=== PATIENT | female | born 1955 | race African-American/Black ===

== ENCOUNTER 2017-09-18 15:45 | Inpatient (IN) | payer MEDICAID, OTHER ==
[~2017-09-18] VITALS: Ht 167.6 cm; Wt 136.5 kg
[~2017-09-18 15:45] MED LIST: AMIT50TA3; DM H; LISI-604; OMEP40CA34; OXYB5TAB11
[2017-09-18] MEDS ORDERED: ACETAMINOPHEN 325MG TABLET PO STA (18:25)
[2017-09-18] MEDS ORDERED: SODIUM CHLORIDE 0.9% 1000ML BAG (SEPSIS BOLUS) IV ONE (18:45)
[2017-09-18] MEDS ORDERED: PIPERACILLIN/TAZOBACTAM 3.375GM/50ML PREMIX IV ONE (19:15)
[2017-09-18] MEDS ORDERED: METRONIDAZOLE 500 MG PREMIX 100 ML IV ONE (19:15)
[2017-09-18] MEDS ORDERED: VANCOMYCIN 1 G PREMIX 200 ML IV SCH (19:15)
[2017-09-18 19:31] LABS: CLARITY URINE CLEAR (CLEAR); COLOR URINE YELLOW (YELLOW); GLUCOSE URINE NEGATIVE (NEGATIVE); KETONES URINE NEGATIVE (NEGATIVE); LEUKOCYTE ESTERASE URINE NEGATIVE (NEGATIVE); NITRITE URINE NEGATIVE (NEGATIVE); OCCULT BLOOD URINE NEGATIVE (NEGATIVE); PROTEIN URINE 2+ (NEGATIVE); SPECIFIC GRAVITY URINE 1.015 (1.005-1.030); UROBILINOGEN URINE 0.2 E.U./dL (0.2-1.0)
[2017-09-18 19:39] LABS: CHLORIDE 110 mEq/L (98-107)
[2017-09-18 19:45] LABS: BASOPHILS % 0.6 % (0.0-2.0); EOSINOPHILS % 13.5 % (0.0-5.0); HEMATOCRIT. 37.3 % (36.0-48.0); HEMOGLOBIN. 11.9 g/dL (12.0-16.0); LYMPHOCYTES % 21.9 % (20.0-50.0); MEAN CORPUSCULAR HEMOGLOBIN 25.6 pg (28.0-32.0); MEAN CORPUSCULAR VOLUME 80.2 fL (81.0-99.0); MEAN PLATELET VOLUME 8.4 fl (7.4-10.4); MONOCYTES % 10.2 % (2.0-8.0); NEUTROPHILS % 53.8 % (40.0-76.0); PLATELET 231 x1000/uL (130-400); RED BLOOD CELL COUNT 4.65 mill/uL (4.2-5.4); RED CELL DISTRIBUTION WIDTH 15.9 % (11.6-14.6)
[2017-09-18 19:56] LABS: CARBON DIOXIDE 25 mEq/L (21-32)
[2017-09-18] MEDS ORDERED: PIPERACILLIN/TAZ 3.375G PREMIX 50 ML IV NR (20:45)
[2017-09-18] MEDS ORDERED: CLONIDINE 0.1MG TABLET PO PRN (23:15)
[2017-09-18] MEDS ORDERED: DOCUSATE SODIUM 100MG CAPSULE PO PRN (23:15)
[2017-09-18] MEDS ORDERED: IPRATROPIUM/ALBUTEROL 0.5-3(2.5)MG/3ML NEB INH PRN (23:15)
[2017-09-18] MEDS ORDERED: MAGNESIUM/ALUMINUM HYDROXIDE/SIMETHICONE 30ML UDC PO PRN (23:15)
[2017-09-18] MEDS ORDERED: ONDANSETRON HCL 4MG/2ML VIAL IV PRN (23:15)
[2017-09-19] VITALS (7 sets, daily range): BP systolic 116–145; BP diastolic 65–81
[2017-09-19] MEDS ORDERED: VANCOMYCIN 1250MG in DEXTROSE 5% WATER 250ML IV NR (04:00)
[2017-09-19] MEDS: SODIUM CHLORIDE 0.9% 1,000 ML IV SCH ×2 (04:26→12:37)
[2017-09-19] MEDS ORDERED: METR500T4 PO (04:33)
[2017-09-19] MEDS ORDERED: SULF-288 PO (04:33)
[2017-09-19] MEDS ORDERED: ALLO100T PO (04:33)
[2017-09-19] MEDS ORDERED: DIPH25CA46 PO (04:33)
[2017-09-19] MEDS ORDERED: GABA-290 PO (04:33)
[2017-09-19] MEDS ORDERED: AMLO10TA80 PO (04:33)
[2017-09-19] MEDS ORDERED: DIPHENHYDRAMINE 25MG CAPSULE PO PRN (06:30)
[2017-09-19] MEDS: PIPERACILLIN/TAZ 3.375G PREMIX 50 ML IV SCH ×3 (06:37→21:40)
[2017-09-19] MEDS: GABAPENTIN 300MG CAPSULE PO SCH ×3 (07:00→21:41)
[2017-09-19] MEDS: METRONIDAZOLE 500MG TABLET PO SCH ×3 (07:00→21:41)
[2017-09-19] MEDS: OMEPRAZOLE 20MG CAPSULE EXTENDED RELEASE PO SCH (07:01)
[2017-09-19 07:12] LABS: BASOPHILS % 0.6 % (0.0-2.0); EOSINOPHILS % 14.7 % (0.0-5.0); HEMATOCRIT. 34.7 % (36.0-48.0); HEMOGLOBIN. 11.1 g/dL (12.0-16.0); LYMPHOCYTES % 20.3 % (20.0-50.0); MEAN CORPUSCULAR HEMOGLOBIN 25.8 pg (28.0-32.0); MEAN CORPUSCULAR VOLUME 80.8 fL (81.0-99.0); MEAN PLATELET VOLUME 8.5 fl (7.4-10.4); MONOCYTES % 10.4 % (2.0-8.0); PLATELET 187 x1000/uL (130-400); RED CELL DISTRIBUTION WIDTH 15.9 % (11.6-14.6)
[2017-09-19] MEDS: ALLOPURINOL 100 MG TABLET PO SCH (09:00)
[2017-09-19] MEDS: OXYBUTYNIN CHLORIDE 5MG TABLET PO SCH ×2 (09:00→20:22)
[2017-09-19] MEDS ORDERED: LISINOPRIL 20MG TABLET PO SCH (09:00)
[2017-09-19] MEDS: AMLODIPINE 10MG TABLET PO SCH (09:00)
[2017-09-19] MEDS: ACETAMINOPHEN 325MG TABLET PO PRN ×2 (09:29→20:30)
[2017-09-19] MEDS: ENOXAPARIN 40MG/0.4ML SYR SUBCUT SCH ×2 (09:32→20:23)
[2017-09-19] MEDS ORDERED: SODIUM POLYSTYRENE SULFONATE 15 G/60 ML BOT PO NR (14:45)
[2017-09-20] VITALS: BP 134/59
[2017-09-20] MEDS: PIPERACILLIN/TAZ 3.375G PREMIX 50 ML IV SCH ×4 (01:37→20:46)
[2017-09-20] MEDS: SODIUM CHLORIDE 0.9% 1,000 ML IV SCH ×2 (01:38→13:40)
[2017-09-20 04:00] VITALS: BP 127/71
[2017-09-20] MEDS: METRONIDAZOLE 500MG TABLET PO SCH ×3 (05:40→21:01)
[2017-09-20] MEDS: GABAPENTIN 300MG CAPSULE PO SCH ×3 (05:40→21:01)
[2017-09-20] MEDS ORDERED: VANCOMYCIN 1 G PREMIX 200 ML IV SCH (06:00)
[2017-09-20 06:44] LABS: EOSINOPHILS % 15.2 % (0.0-5.0); HEMATOCRIT. 33.9 % (36.0-48.0); HEMOGLOBIN. 10.8 g/dL (12.0-16.0); LYMPHOCYTES % 26.8 % (20.0-50.0); MEAN CORPUSCULAR HEMOGLOBIN 25.5 pg (28.0-32.0); MEAN CORPUSCULAR VOLUME 80.1 fL (81.0-99.0); MEAN PLATELET VOLUME 8.4 fl (7.4-10.4); MONOCYTES % 11.2 % (2.0-8.0); NEUTROPHILS % 45.8 % (40.0-76.0); PLATELET 184 x1000/uL (130-400); RED BLOOD CELL COUNT 4.23 mill/uL (4.2-5.4); RED CELL DISTRIBUTION WIDTH 15.6 % (11.6-14.6)
[2017-09-20] MEDS: OMEPRAZOLE 20MG CAPSULE EXTENDED RELEASE PO SCH (07:28)
[2017-09-20 08:00] VITALS: BP 130/76
[2017-09-20] MEDS: OXYBUTYNIN CHLORIDE 5MG TABLET PO SCH ×2 (08:32→20:47)
[2017-09-20] MEDS: ENOXAPARIN 40MG/0.4ML SYR SUBCUT SCH ×2 (08:32→20:48)
[2017-09-20] MEDS: AMLODIPINE 10MG TABLET PO SCH (08:32)
[2017-09-20] MEDS: ALLOPURINOL 100 MG TABLET PO SCH (08:32)
[2017-09-20 12:00] VITALS: BP 123/62
[2017-09-20 12:14] LABS: TOTAL IRON BINDING CAPACITY 254 ug/dL (250-450)
[2017-09-20 16:00] VITALS: BP 146/81
[2017-09-20] MEDS: HYDROCODONE/ACETAMINOPHEN 5/325MG TABLET PO PRN ×2 (16:45→20:48)
[2017-09-20 20:00] VITALS: BP 102/51
[2017-09-20] MEDS ORDERED: ATORVASTATIN CALCIUM 10MG TABLET PO SCH (21:00)
[2017-09-21] VITALS: BP 137/60
[2017-09-21 04:00] VITALS: BP 116/58
[2017-09-21] MEDS: PIPERACILLIN/TAZ 3.375G PREMIX 50 ML IV SCH ×3 (04:53→16:03)
[2017-09-21] MEDS: SODIUM CHLORIDE 0.9% 1,000 ML IV SCH (04:55)
[2017-09-21 05:19] LABS: BASOPHILS % 1.1 % (0.0-2.0); EOSINOPHILS % 13.2 % (0.0-5.0); HEMATOCRIT. 33.3 % (36.0-48.0); HEMOGLOBIN. 10.6 g/dL (12.0-16.0); LYMPHOCYTES % 25.8 % (20.0-50.0); MEAN CORPUSCULAR HEMOGLOBIN 25.5 pg (28.0-32.0); MEAN CORPUSCULAR VOLUME 80.4 fL (81.0-99.0); MEAN PLATELET VOLUME 8.4 fl (7.4-10.4); MONOCYTES % 11.3 % (2.0-8.0); NEUTROPHILS % 48.6 % (40.0-76.0); PLATELET 180 x1000/uL (130-400); RED BLOOD CELL COUNT 4.14 mill/uL (4.2-5.4); RED CELL DISTRIBUTION WIDTH 15.4 % (11.6-14.6)
[2017-09-21 05:43] LABS: VANCOMYCIN TROUGH 9.5 ug/mL (5.0-10.0)
[2017-09-21] MEDS: METRONIDAZOLE 500MG TABLET PO SCH ×2 (06:02→16:02)
[2017-09-21] MEDS: GABAPENTIN 300MG CAPSULE PO SCH ×2 (06:02→16:03)
[2017-09-21] MEDS ORDERED: SODIUM POLYSTYRENE SULFONATE 15 G/60 ML BOT PO SCH (07:00)
[2017-09-21] MEDS: OMEPRAZOLE 20MG CAPSULE EXTENDED RELEASE PO SCH (07:20)
[2017-09-21 08:00] VITALS: BP 147/79
[2017-09-21] MEDS: AMLODIPINE 10MG TABLET PO SCH (09:08)
[2017-09-21] MEDS: ALLOPURINOL 100 MG TABLET PO SCH (09:08)
[2017-09-21] MEDS: HYDROCODONE/ACETAMINOPHEN 5/325MG TABLET PO PRN ×2 (09:08→16:01)
[2017-09-21] MEDS: OXYBUTYNIN CHLORIDE 5MG TABLET PO SCH (09:08)
[2017-09-21 12:00] VITALS: BP 118/59
[2017-09-21 16:00] VITALS: BP 129/68
[2017-09-21 18:29] VITALS: BP 129/68
== END 2017-09-21 19:11 | disposition home health service (06) | DRG 721 ==
LOC: ER 17:53 → EDBEDREQSVC 20:56 → EDBEDREQTM 20:56 → 6EST 21:43 → EDBEDREQTM 21:43 → EDBEDREQ 21:43 → CANRESERV 22:06 → ENRESERV 22:06
PROVIDERS: ADMIT Internal Medicine; ATTEND Internal Medicine
DX: T81.4XXA Infection following a procedure, initial encounter (principal); N17.9 Acute kidney failure, unspecified; E87.5 Hyperkalemia; E44.1 Mild protein-calorie malnutrition; L02.211 Cutaneous abscess of abdominal wall; I12.9 Hypertensive chronic kidney disease with stage 1 through stage 4 chronic kidney disease, or unspecified chronic kidney disease; N18.9 Chronic kidney disease, unspecified; E78.5 Hyperlipidemia, unspecified; M10.9 Gout, unspecified; M25.511 Pain in right shoulder; K43.9 Ventral hernia without obstruction or gangrene; Z90.5 Acquired absence of kidney; Z79.899 Other long term (current) drug therapy; E78.00 Pure hypercholesterolemia, unspecified; D64.9 Anemia, unspecified; Y83.8 Other surgical procedures as the cause of abnormal reaction of the patient, or of later complication, without mention of misadventure at the time of the procedure; Y92.89 Other specified places as the place of occurrence of the external cause
CPT/HCPCS: 36415; 71010; 73030; 74176; 76770; 80048; 80053; 80061; 80202; 81001; 83540; 83550; 83605; 83690; 85025; 87040; 87070; 87077; 87086; 87186; 87205; 93005; 93970; 96365; 96366; 96367; 99285; C1893; J1650; J2543; J3370; J3490; J7030; J7060